=== PATIENT | male | born 1970 | race Asian ===

== ENCOUNTER 2016-10-27 13:33 | Emergency (ER) | payer SELFPAY ==
[~2016-10-27] VITALS: Ht 175.3 cm; Wt 86.0 kg
[~2016-10-27 13:33] MED LIST: HYDR-3971 PO
[2016-10-27] MEDS ORDERED: HYDROCODONE/ACETAMINOPHEN 5-325 MG TABLET PO ONE (14:45)
[2016-10-27 16:10] VITALS: BP 139/83
== END 2016-10-27 16:43 | disposition home or self-care (01) ==
LOC: EMS 13:34
DX: S23.3XXA Sprain of ligaments of thoracic spine, initial encounter (principal); S63.502A Unspecified sprain of left wrist, initial encounter; S20.212A Contusion of left front wall of thorax, initial encounter; S20.211A Contusion of right front wall of thorax, initial encounter; F17.210 Nicotine dependence, cigarettes, uncomplicated; V43.52XA Car driver injured in collision with other type car in traffic accident, initial encounter; Y93.89 Activity, other specified; Y92.488 Other paved roadways as the place of occurrence of the external cause; Y99.8 Other external cause status
CPT/HCPCS: 71111; 99284

== ENCOUNTER 2016-12-31 16:20 | Emergency (ER) | payer SELFPAY ==
[~2016-12-31] VITALS: Ht 175.3 cm; Wt 86.4 kg
[2016-12-31] MEDS ORDERED: SODIUM PHOS/SODIUM BIPHOS 133 ML ENEMA PR ONE (19:00)
[2016-12-31] MEDS ORDERED: MAGNESIUM CITRATE 300 ML ORAL SOLUTION PO ONE (19:00)
[2016-12-31 19:20] VITALS: BP 126/75
== END 2016-12-31 20:00 | disposition home or self-care (01) ==
LOC: EMS 16:22
DX: K59.00 Constipation, unspecified (principal); I10 Essential (primary) hypertension; F17.210 Nicotine dependence, cigarettes, uncomplicated
CPT/HCPCS: 99284; 99406

== ENCOUNTER 2019-10-18 19:18 | Emergency (ER) | payer MEDICAID ==
[~2019-10-18] VITALS: Ht 175.3 cm; Wt 89.5 kg
[2019-10-18 20:07] VITALS: BP 135/88
[2019-10-18] MEDS ORDERED: IBUPROFEN 600 MG TABLET PO ONE (20:15)
[2019-10-18] MEDS ORDERED: COLCHICINE 0.6 MG TABLET PO ONE (20:15)
[2019-10-18] MEDS ORDERED: HYDROCODONE/ACETAMINOPHEN 5-325 MG TABLET PO ONE (20:15)
== END 2019-10-18 20:23 | disposition home or self-care (01) ==
LOC: EMS 19:22
DX: M10.9 Gout, unspecified (principal); F17.210 Nicotine dependence, cigarettes, uncomplicated
CPT/HCPCS: Z7502; Z7610

== ENCOUNTER 2020-02-19 18:57 | Emergency (ER) | payer MEDICAID ==
[~2020-02-19] VITALS: Ht 175.3 cm; Wt 93.2 kg
[2020-02-19 20:07] VITALS: BP 137/88
[2020-02-19 20:15] LABS: COVID AG,FIA SOURCE NASOPHARYNGEAL
== END 2020-02-19 21:36 | disposition home or self-care (01) ==
LOC: EMS 18:57
DX: I10 Essential (primary) hypertension (principal); Z20.828 Contact with and (suspected) exposure to other viral communicable diseases
CPT/HCPCS: 87426

== ENCOUNTER 2020-02-26 10:52 | Emergency (ER) | payer MEDICAID ==
[~2020-02-26] VITALS: Ht 170.2 cm; Wt 77.3 kg
[2020-02-26 11:04] VITALS: BP 133/79
== END 2020-02-26 11:48 | disposition home or self-care (01) ==
LOC: EMS 10:52
DX: Z20.828 Contact with and (suspected) exposure to other viral communicable diseases (principal); I10 Essential (primary) hypertension; F17.210 Nicotine dependence, cigarettes, uncomplicated
CPT/HCPCS: 99283; U0003

== ENCOUNTER 2020-03-26 08:10 | Emergency (ER) | payer MEDICAID ==
[~2020-03-26] VITALS: Ht 175.3 cm; Wt 94.5 kg
[2020-03-26 08:12] VITALS: BP 140/103
[2020-03-26] MEDS ORDERED: IBUPROFEN 600 MG TABLET ONE (09:29)
[2020-03-26] MEDS ORDERED: IBUPROFEN 600 MG TABLET PO ONE (09:30)
== END 2020-03-26 09:38 | disposition home or self-care (01) ==
LOC: EMS 08:10
DX: U07.1 COVID-19 (principal); R09.81 Nasal congestion; M79.10 Myalgia, unspecified site; I10 Essential (primary) hypertension; F17.210 Nicotine dependence, cigarettes, uncomplicated
CPT/HCPCS: 99283; U0003

== ENCOUNTER 2020-04-11 13:13 | Emergency (ER) | payer MEDICAID ==
[~2020-04-11] VITALS: Ht 175.3 cm; Wt 93.2 kg
[2020-04-11 14:04] VITALS: BP 129/87
[2020-04-11 15:44] LABS: COVID AG,FIA SOURCE NASOPHARYNGEAL
== END 2020-04-11 14:56 | disposition home or self-care (01) ==
LOC: EMS 13:22
DX: Z20.822 Contact with and (suspected) exposure to COVID-19 (principal); I10 Essential (primary) hypertension; F17.210 Nicotine dependence, cigarettes, uncomplicated
CPT/HCPCS: 87426; 99283; C9803; U0003